=== PATIENT | male | born 1995 | race Caucasian/White ===

== ENCOUNTER 2017-01-26 10:08 | Emergency (ER) | payer SELFPAY ==
[2017-01-26 10:15] VITALS: BP 119/66; BMI 26.4
--- NOTE | 2017-01-26 10:51 | DR.GENAD ---
HPI - PCP Primary Care Physician: MAGDIEL - HPI Comment HPI Comment: PAIN WORSE TODAY. NO FEVER OR DYSURIA. - Complaint/Symptoms Chief Complaint Doctors Comments: LEFT SIDED ABDOMINAL AND FLANK PAIN TIMES FEW DAYS. Chief Complaint:: PT C/O LT SIDED ABD PAIN THAT STARTED THIS PAST WEDNESDAY PT STATES HE HAS BEEN TRYING TO GET BY WITH THE PAIN , BUT TODAY THE PAIN IS WORSE. - Nurses notes reviewed Nurses Notes Review: Yes - Source History Provided: Patient - Mode of Arrival Mode of Arrival: Ambulatory - Timing Onset of Chief Complaint: 01/23/17 Came on: Suddenly - Duration Duration: Constant Duration: Days - Severity Severity: Moderate PMH - PMH Past Medical History: No Past Surgical History: No - Family History History of Family Medical Conditions: No - Social History Does any household member use tobacco: No Alcohol Use: None Do you use any recreational Drugs:: No Lives With: Family Lives Where: Home - infectious screening In the last 2 months have you had wt loss of >10#?: NO Have you had fever, night sweats or hemotysis?: No Have you traveled outside the country in the last 6 months?: No Isolation: Standard ROS - Review of Systems Constitutional: No Symptoms Reported Eyes: No Symptoms Reported ENTM: No Symptoms Reported Respiratoy: No Symptoms Reported Cardiovascular: No Symptoms Reported Gastrointestinal/Abdominal: Abdominal Pain, Nausea Neurological: No Symptoms Reported Musculoskeletal: No Symptoms Reported Integumentary: No Symptoms Reported Hematologic/Lymphatic: No Symptoms Reported Endocrine: No Symptoms Reported All Other Systems: Reviewed and Negative PE - Vital Signs Vitals: Temperature 97.8 F Pulse Rate 74 Respiratory Rate 20 Blood Pressure 119/66 O2 Sat by Pulse Oximetry 100 - General Limitations: No Limitations General Appearance: Alert - Head Head Exam: Normal Inspection - Eyes Eye exam: Normal Appearance - ENT ENT Exam: Normal External Ear Exam External Ear Exam: Normal External Inspection TM/Canal Exam: Bilateral Normal Nose Exam: Normal Nose Exam Mouth Exam: Normal Inspection Throat Exam: Normal Inspection - Neck Neck Exam: Trachea Midline - Chest Chest Inspection: Symmetric Chest Wall Rise - Respiratory Respiratory Exam: Normal Lung Sounds Bilat Respiratory Exam: Bilateral Clear to Auscultation - Cardiovascular Cardiovascular Exam: Regular Rate, Normal Rhythm, Normal Heart Sounds - Abdominal Exam Abdominal Exam: Normal Bowel Sounds, Soft, Tenderness Abdominal Tenderness: LUQ, LLQ, Moderate - Extremities Extremities Exam: Normal Inspection - Back Back Exam: Normal Inspection - Neurologic Neurological Exam: Alert, Oriented X3 - Psychiatric Psychiatric Exam: Normal Affect, Normal Mood - Skin Skin Exam: Normal Color MDM - Additional Information Additional Information Obtained From: Family - Differential Diagnosis Differential Diagnosis: ABDOMINAL PAIN, BOWEL OBSTRUCTION, PACREATITIS, CHOLECYSTITIS, DIVERTICULIT Course - Treatment Treatment: SEE ORDERS - Education/Counseling Education/Counseling: Patient, Family, Education Educated On: Diagnosis, Needs for Follow Up ROR - Labs Reviewed Laboratory Results Reviewed?: Yes Result Diagrams: 01/26/17 11:07 01/26/17 11:07 Laboratory: WBC 7.0 X10^3/uL (3.6-10.0) 01/26/17 11:07 RBC 5.23 X10^6/uL (4.7-6.0) 01/26/17 11:07 Hgb 15.3 g/dL (13.5-18.0) 01/26/17 11:07 Hct 45.1 % (42.0-54.0) 01/26/17 11:07 MCV 86.3 fL (80.0-100.0) 01/26/17 11:07 MCH 29.3 pg (27.0-34.0) 01/26/17 11:07 MCHC 34.0 g/dL (33.0-35.0) 01/26/17 11:07 RDW 12.8 % (11.6-16.5) 01/26/17 11:07 Plt Count 193 X10^3/uL (150.0-450.0) 01/26/17 11:07 MPV 9.8 fL (7.4-11.0) 01/26/17 11:07 Neut % 62.3 % (42.0-75.0) 01/26/17 11:07 Lymph % 27.6 % (21.0-51.0) 01/26/17 11:07 [place] % 8.1 % (0.0-13.0) 01/26/17 11:07 Eos % 1.5 % (0.9-2.9) 01/26/17 11:07 Baso % 0.5 % (0.2-1.0) 01/26/17 11:07 Neut # 4.3 x10^3/uL (2.2-4.8) 01/26/17 11:07 Lymph # 1.9 X10^3/uL (1.3-2.9) 01/26/17 11:07 [place] # 0.6 x10^3/uL (0.3-0.8) 01/26/17 11:07 Eos # 0.1 x10^3/uL (0.0-0.2) 01/26/17 11:07 Baso # 0.0 X10^3/uL (0.0-0.1) 01/26/17 11:07 Absolute Nucleated RBC 0.1 /100WBC 01/26/17 11:07 Sodium 143 mmol/L (136-145) 01/26/17 11:07 Corrected Sodium TNP 01/26/17 11:07 Potassium 4.4 mmol/L (3.5-5.1) 01/26/17 11:07 Chloride 106 mmol/L (98-107) 01/26/17 11:07 Carbon Dioxide 27.7 mmol/L (21-32) 01/26/17 11:07 BUN 14 mg/dL (7-18) 01/26/17 11:07 Creatinine 1.00 mg/dL (0.70-1.30) 01/26/17 11:07 Est GFR (MDRD) Af Amer > 60 (>60) 01/26/17 11:07 Est GFR (MDRD) Non-Af > 60 (>60) 01/26/17 11:07 Glucose 89 mg/dL (65-99) 01/26/17 11:07 Calcium 8.8 mg/dL (8.5-10.1) 01/26/17 11:07 Corrected Calcium TNP 01/26/17 11:07 Total Bilirubin 0.50 mg/dL (0.2-1.0) 01/26/17 11:07 AST 19 Units/L (15-37) 01/26/17 11:07 ALT 30 Units/L (12-78) 01/26/17 11:07 Alkaline Phosphatase 93 Units/L (46-116) 01/26/17 11:07 Total Protein 8.1 g/dL (6.4-8.2) 01/26/17 11:07 Albumin 4.1 g/dL (3.4-5.0) 01/26/17 11:07 Globulin 4.0 g/dL (2.5-4.5) 01/26/17 11:07 Albumin/Globulin Ratio 1.0 Ratio (1.1-2.1) L 01/26/17 11:07 Amylase 58 Units/L (25-115) 01/26/17 11:07 Lipase 94 Units/L (73-393) 01/26/17 11:07 Specimen Type Clean catch urine 01/26/17 11:05 Urine Color Yellow (YELLOW) 01/26/17 11:05 Urine Appearance Clear (CLEAR) 01/26/17 11:05 Urine pH 5.0 (5.0 - 8.0) 01/26/17 11:05 Ur Specific [place] 1.025 (1.000-1.030) 01/26/17 11:05 Urine Protein 1+ (NEGATIVE) 01/26/17 11:05 Urine Glucose (UA) Negative (NEGATIVE) 01/26/17 11:05 Urine Ketones Negative (NEGATIVE) 01/26/17 11:05 Urine Occult Blood Negative (NEGATIVE) 01/26/17 11:05 Urine Nitrite Negative (NEGATIVE) 01/26/17 11:05 Urine Bilirubin Negative (NEGATIVE) 01/26/17 11:05 Urine Urobilinogen Normal (NORMAL) 01/26/17 11:05 Ur Leukocyte Esterase Negative (NEGATIVE) 01/26/17 11:05 Urine RBC Negative /HPF (NEGATIVE) 01/26/17 11:05 Urine WBC Rare /HPF (NEGATIVE) 01/26/17 11:05 Ur Squamous Epith Cells Rare /HPF (NEGATIVE) 01/26/17 11:05 Urine Bacteria Negative /HPF (NEGATIVE) 01/26/17 11:05 Ur Culture Indicated? No/not indicated 01/26/17 11:05 - XRAY XRAY Interpreted by: Radiologist XRAY Findings: REPORT DISCUSS WITH PATIENT AND HIS - Diagnosis Discharge Problem: Abdominal pain Qualifiers: Abdominal location: left upper quadrant Qualified Code(s): R10.12 - Left upper quadrant pain Abdominal pain Qualifiers: Abdominal location: left upper quadrant Qualified Code(s): R10.12 - Left upper quadrant pain - Discharge Plan Disposition: 01 HOME, SELF-CARE Condition: Stable Prescriptions: Ketorolac Tromethamine [Toradol Tab] 10 mg PO Q8H PRN #20 tab PRN Reason: Pain Ranitidine HCl [ZANTAC TAB 150 MG *] 150 mg PO BID #60 tab - Follow ups/Referrals Follow ups/Referrals: [facility],None [Primary Care Provider] - 3 days - Instructions Instructions: Abdominal Pain, Adult, [id number] Additional Instructions: RETURN TO ED IF WORSE.
[2017-01-26 11:14] LABS: BILIRUBIN,URINE NEGATIVE (NEGATIVE); BLOOD/HEMOGLOBIN,URINE NEGATIVE (NEGATIVE); GLUCOSE, URINE NEGATIVE (NEGATIVE); KETONES,URINE NEGATIVE (NEGATIVE); LEUKOCYTE ESTERASE ,URINE NEGATIVE (NEGATIVE); NITRITES,URINE NEGATIVE (NEGATIVE); PROTEIN,URINE 1+ (NEGATIVE); UROBILINOGEN,URINE NORMAL (NORMAL)
[2017-01-26 11:22] LABS: COLOR,URINE YELLOW (YELLOW)
[2017-01-26 11:23] LABS: APPEARANCE,URINE CLEAR (CLEAR); BACTERIA,URINE NEGATIVE /HPF (NEGATIVE); RBC,URINE NEGATIVE /HPF (NEGATIVE); SQUAMOUS EPITHELIAL CELL,UR RARE /HPF (NEGATIVE)
[2017-01-26 11:35] LABS: BASOPHILS % (AUTO) 0.5 % (0.2-1.0); EOSINOPHILS # (AUTO) 0.1 x10^3/uL (0.0-0.2); EOSINOPHILS % (AUTO) 1.5 % (0.9-2.9); HEMATOCRIT 45.1 % (42.0-54.0); HEMOGLOBIN 15.3 g/dL (13.5-18.0); LYMPHOCYTES # (AUTO) 1.9 X10^3/uL (1.3-2.9); LYMPHOCYTES % (AUTO) 27.6 % (21.0-51.0); MEAN CORPUSCULAR HEMOGLOBIN 29.3 pg (27.0-34.0); MEAN CORPUSCULAR VOLUME 86.3 fL (80.0-100.0); MEAN PLATELET VOLUME 9.8 fL (7.4-11.0); MONOCYTES # (AUTO) 0.6 x10^3/uL (0.3-0.8); MONOCYTES % (AUTO) 8.1 % (0.0-13.0); NEUTROPHILS # (AUTO) 4.3 x10^3/uL (2.2-4.8); NEUTROPHILS % (AUTO) 62.3 % (42.0-75.0); PLATELET COUNT 193 X10^3/uL (150.0-450.0); RED BLOOD COUNT 5.23 X10^6/uL (4.7-6.0); RED CELL DISTRIBUTION WIDTH 12.8 % (11.6-16.5)
[2017-01-26 11:54] LABS: ALANINE AMINOTRANSFERASE 30 Units/L (12-78); ALBUMIN 4.1 g/dL (3.4-5.0); ALKALINE PHOSPHATASE 93 Units/L (46-116); AMYLASE 58 Units/L (25-115); ASPARTATE AMINO TRANSFERASE 19 Units/L (15-37); BLOOD UREA NITROGEN 14 mg/dL (7-18); CALCIUM 8.8 mg/dL (8.5-10.1); CARBON DIOXIDE 27.7 mmol/L (21-32); CHLORIDE 106 mmol/L (98-107); GLUCOSE 89 mg/dL (65-99); LIPASE 94 Units/L (73-393); SODIUM 143 mmol/L (136-145); TOTAL PROTEIN 8.1 g/dL (6.4-8.2); eGFR BLACK RACES > 60 (>60); eGFR NON BLACK RACES > 60 (>60)
--- NOTE | 2017-01-26 13:28 | CT ---
CT abdomen and pelvis without contrast Indication: Left-sided abdominal pain Comparison: None available Technique: Multiple axial images of the abdomen and pelvis were obtained from the lung bases to the pubic symph ysis without the administration of IV contrast. Coronal and sagittal images were also provided. Radiation dose reduction techniques were performed utilizing adjustment for MA/kVP based on patient body size. Findings: The visualized portions of the lung bases are unremarkable. The bony structures are grossly intact. Given the limitations of lack of IV contrast administration the liver, gallbladder, spleen, pancreas , and adrenal glands are unremarkable in their CT appearance. No evidence of stone within either kidney or ureter. No hydronephrosis is identified. No bowel wall thickening or bowel dilatation is present. There is subtle stranding of the fat adjace nt to the sigmoid colon on axial image 65 and coronal image 13 consistent with epiploic appendagitis . The urinary bladder is grossly unremarkable. Prostate gland is normal. The appendix is normal. No mesenteric lymphadenopathy or stranding can be observed. No free fluid or free air is seen withi n the abdomen. IMPRESSION: 1. Stranding anterior to the sigmoid colon with inflamed fat consistent with acute epiploic appenda gitis. This typically can be treated with anti-inflammatory pain medications for symptomatic relief as the process is self-limiting. 2. The appendix is normal. Reported By:
== END 2017-01-26 14:07 | disposition home or self-care (01) ==
LOC: ER 10:39
DX: R10.12 Left upper quadrant pain (principal)
CPT/HCPCS: 36415; 74176; 80053; 81001; 82150; 83690; 85025; 99283